=== PATIENT | female | born 1995 | race Caucasian/White ===

== ENCOUNTER 2016-06-20 10:31 | Emergency (ER) | payer OTHER ==
[~2016-06-20 10:31] MED LIST: BACTRIM DS TABL1 TA1 PO; DEPO-PROVE150 MG/1 M IM; IBUPROFEN800 MG PO; NO MEDICATIONS; NORCO1 TAB 10/3 PO; PYRIDIUM100 MG PO; UTI ANTIBIOTIC
== END 2016-06-20 10:57 | disposition home or self-care (01) ==
LOC: SED 10:31
DX: J01.90 Acute sinusitis, unspecified (principal); Z87.442 Personal history of urinary calculi; F17.210 Nicotine dependence, cigarettes, uncomplicated
CPT/HCPCS: 99282

== ENCOUNTER 2016-11-13 16:09 | Emergency (ER) | payer OTHER ==
[2016-11-13 16:50] LABS: BASOPHIL% 0.5 % (0-2.5); EOSINOPHIL# 0.1 X10e3 (0-0.7); EOSINOPHIL% 1.3 % (0.0-7.0); HEMATOCRIT 43.2 % (35.0-45.0); HEMOGLOBIN 14.8 gm/dL (12.0-16.0); MEAN CELL VOLUME 88.2 FL (83-96); MEAN CORPUSCULAR HEMOGLOBIN 30.3 PG (28-34); MEAN CORPUSCULAR HGB CONC 34.4 g/dL (30-36); MONOCYTE# 0.5 X10e3 (0-1.0); MONOCYTE% 6.9 % (3.0-12.0); NEUTROPHIL# 4.8 X10e3 (1.5-7.1); NEUTROPHIL% 64.3 % (40-75); PLATELET COUNT 249 X10e3 (140-420); RED CELL DISTRIBUTION WIDTH 13.1 % (11.0-15.5); WHITE BLOOD COUNT 7.5 X10e3 (4.0-10.5)
[2016-11-13 16:58] LABS: URINE SOURCE CLEAN CATCH
[2016-11-13 16:59] LABS: BUN/CREATININE RATIO 12.85; CALCIUM SERUM 9.2 mg/dL (8.4-10.2); CREATININE SERUM 0.7 mg/dL (0.6-1.4); GLOM FILT RATE Estimated 123.9 mL/min (>60); POTASSIUM 3.5 mmol/L (3.5-5.1)
[2016-11-13 17:00] LABS: URINE APPEARANCE CLEAR; URINE BILIRUBIN NEG (NEG); URINE BLOOD NEG (NEG); URINE COLOR YELLOW; URINE GLUCOSE NEG (NORM); URINE KETONE NEG (NEG); URINE LEUKOCYTE ESTERASE 1+ (NEG); URINE NITRATE NEG (NEG); URINE PROTEIN NEG (NEG); URINE SPECIFIC GRAVITY >=1.030 (1.003-1.035); URINE UROBILINOGEN 0.2 MG/DL (NORM)
[2016-11-13 17:07] LABS: DIFF IND NO
[2016-11-13 17:12] LABS: MICRO INDICATED? YES
[2016-11-13 17:15] LABS: CULTURE INDICATED? YES; URINE BACTERIA 2+ (NEG); URINE CRYSTALS CALCIUM OXALATE /[HPF]; URINE RBC 0-2 /[HPF] (0-2); URINE SQUAMOUS EPITHELIAL CELL MODERATE /[HPF]
[2016-11-15 22:16] LABS: CHLAMYDIA TRACH Not Detected (Not Detected); N GONOR Not Detected (Not Detected)
== END 2016-11-13 17:46 | disposition home or self-care (01) ==
LOC: SED 16:09
PROVIDERS: Nurse Practitioner
DX: N76.0 Acute vaginitis (principal); N30.90 Cystitis, unspecified without hematuria; Z87.442 Personal history of urinary calculi; F17.210 Nicotine dependence, cigarettes, uncomplicated
CPT/HCPCS: 36415; 80048; 81003; 84703; 85025; 87086; 87088; 87186; 87210; 87491; 87591; 87808; 87905; 96374; 99284; J1885